=== PATIENT | male | born 1985 | race Caucasian/White ===

== ENCOUNTER 2018-11-18 03:20 | Emergency (ER) | payer BC ==
[2018-11-18] MEDS ORDERED: Ibuprofen 800 MG Tab PO ONE (03:51)
--- NOTE | 2018-11-18 03:57 | EDM.PDOC ---
ED HPI GENERAL MEDICAL PROBLEM - General Chief Complaint: General Stated Complaint: NECK AND THROAT PAIN Time Seen by Provider: 11/18/18 03:36 Source of Information: Reports: Patient History Limitations: Reports: No Limitations - History of Present Illness INITIAL COMMENTS - FREE TEXT/NARRATIVE: 32 y/o M with neck pain, sore throat, nasal congestion, and cough x 3-4 days. No known fever. No difficulty speaking or swallowing. Took APAP about 12 hours ago, no additional medications. He's worried about his neck stiffness. He does not have a headache. He states it doesn't hurt to move his head towards his chest, but when he moves his head side to side he encounters a lot of pain and stiffness. No injury. Pain started a few days ago, initially thought he slept on it wrong. Hasn't improved. No additional complaint. Neck Pain Score (Numeric/FACES): 8 - Related Data Allergies Allergy/AdvReac Type Severity Reaction Status Date / Time No Known Allergies Allergy Verified 11/18/18 03:31 Home Meds: Home Meds Cyclobenzaprine [Flexeril] 10 mg PO BID PRN #10 tab 11/18/18 [Rx] Ibuprofen 800 mg PO TID PRN #30 tablet 11/18/18 [Rx] Past Medical History - Past Health History Medical/Surgical History: Denies Medical/Surgical History Social & Family History - Family History Family Medical History: Noncontributory - Tobacco Use Smoking Status *Q: Current Every Day Smoker Years of Tobacco use: 10 Packs/Tins Daily: 1 - Caffeine Use Caffeine Use: Reports: Coffee - Recreational Drug Use Recreational Drug Use: No ED ROS GENERAL - Review of Systems Review Of Systems: See Below Constitutional: Denies: Fever HEENT: Reports: Rhinitis, Throat Pain Respiratory: Reports: Cough. Denies: Shortness of Breath Cardiovascular: Reports: No Symptoms GI/Abdominal: Reports: No Symptoms Musculoskeletal: Reports: Neck Pain Skin: Reports: No Symptoms Neurological: Reports: No Symptoms ED EXAM, GENERAL - Physical Exam Exam: See Below Exam Limited By: No Limitations General Appearance: Alert, WD/WN, No Apparent Distress Eye Exam: Bilateral Eye: Normal Inspection Ears: Normal External Exam, Normal Canal, Hearing Grossly Normal, Normal TMs Nose: Normal Inspection, Normal Mucosa, No Blood Throat/Mouth: Other (mild posterior pharyngeal erythema, mild tonsillar hypertropy, no tonsillar exudate) Head: Atraumatic, Normocephalic Neck: Normal Inspection, Other (No midline TTP. Can flex without pain, has some pain with extension. Limited ROM in lateral planes bilaterally due to pain but can turn head both directions to about 45 degrees. Moderate TTP of SCM musculature bilaterally, most severe in the superior portions. Few scattered cervical lymph nodes. ) Respiratory/Chest: No Respiratory Distress, Normal Breath Sounds, No Accessory Muscle Use, Chest Non-Tender Cardiovascular: Normal Peripheral Pulses, Regular Rate, Rhythm Extremities: Normal Inspection Neurological: Alert, Oriented, Normal Cognition, No Motor/Sensory Deficits Psychiatric: Normal Affect, Normal Mood Skin Exam: Warm, Dry, Intact, Normal Color Course - Vital Signs Last Recorded V/S: Last Vital Signs Temp 36.9 C 11/18/18 03:29 Pulse 97 11/18/18 03:29 Resp 16 11/18/18 03:29 BP 157/96 H 11/18/18 03:29 Pulse Ox 97 11/18/18 03:29 - Orders/Labs/Meds Orders: Active Orders 24 hr Category Date Time Status Ibuprofen [Motrin] Med 11/18/18 03:51 Once 800 mg PO ONETIME ONE - Re-Assessments/Exams Free Text/Narrative Re-Assessment/Exam: 11/18/18 03:56 Cough/rhinorrhea/mild sore throat consistent with URI. No evidence of deep throat or neck infection. No fever. He has a lot of stiffness of the musculature of the neck, torticollis picture, not necessarily related to his URI symptoms. Discussed symptom control, discussed strict ED return precautions for worsening symptoms. Departure - Departure Time of Disposition: 03:57 Disposition: Home, Self-Care 01 Clinical Impression: Acute muscle stiffness of neck Upper respiratory infection Qualifiers: URI type: unspecified viral URI Qualified Code(s): J06.9 - Acute upper respiratory infection, unspecified - Discharge Information Prescriptions: Cyclobenzaprine [Flexeril] 10 mg PO BID PRN #10 tab PRN Reason: muscle stiffness Ibuprofen 800 mg PO TID PRN #30 tablet PRN Reason: Pain Referrals: PCP,None [Primary Care Provider] - Additional Instructions: 1. Take ibuprofen as prescribed. OK to take acetaminophen (Tylenol) in addition to ibuprofen according to bottle directions. 2. Take cyclobenzaprine (Flexeril) as needed for muscle stiffness 3. Use warm compresses on areas of neck pain. Avoid activities that exacerbate the pain. 4. Follow up with a primary care provider as soon as possible. Call [phone] to schedule here. 5. Return to the ED for worsening pain, new fevers with temp 101 or higher, difficulty swallowing, or other concerning symptoms. - My Orders Last 24 Hours: My Active Orders 11/18/18 03:51 Ibuprofen [Motrin] 800 mg PO ONETIME ONE - Assessment/Plan Last 24 Hours: My Active Orders 11/18/18 03:51 Ibuprofen [Motrin] 800 mg PO ONETIME ONE
== END 2018-11-18 04:08 | disposition home or self-care (01) ==
LOC: JD.ED 03:20
DX: M43.6 Torticollis (principal); J06.9 Acute upper respiratory infection, unspecified; F17.210 Nicotine dependence, cigarettes, uncomplicated
CPT/HCPCS: 99283; A9270

== ENCOUNTER 2019-03-11 23:31 | Emergency (ER) | payer BC ==
[2019-03-12] MEDS ORDERED: predniSONE 20 MG Tab PO ONE (00:28)
--- NOTE | 2019-03-12 00:37 | EDM.PDOC ---
ED HPI GENERAL MEDICAL PROBLEM - General Chief Complaint: Lower Extremity Injury/Pain Stated Complaint: LEFT LEG PAIN Time Seen by Provider: 03/12/19 00:00 Source of Information: Reports: Patient, RN Notes Reviewed - History of Present Illness INITIAL COMMENTS - FREE TEXT/NARRATIVE: 33-year-old male comes in with left-sided low back pain radiation down the left leg clear to the foot. Started with mild low back discomfort about a week ago and then yesterday or the day before started with pain shooting down into the leg. He did go to the walk-in clinic and they did prescribe ibuprofen 800 mg for him. States he has taken "14 of them today" with out any meaningful relief. No abdominal pain nausea vomiting. He is worse with motion. Left Hip Pain Score (Numeric/FACES): 9 - Related Data Allergies Allergy/AdvReac Type Severity Reaction Status Date / Time No Known Allergies Allergy Verified 11/18/18 03:31 Home Meds: Home Meds Cyclobenzaprine [Flexeril] 10 mg PO BID PRN #10 tab 11/18/18 [Rx] Ibuprofen 800 mg PO TID PRN #30 tablet 11/18/18 [Rx] predniSONE [Prednisone] 50 mg PO DAILY #6 tablet 03/12/19 [Rx] Past Medical History - Past Health History Medical/Surgical History: Denies Medical/Surgical History Social & Family History - Family History Family Medical History: Noncontributory - Tobacco Use Smoking Status *Q: Current Every Day Smoker Years of Tobacco use: 10 Packs/Tins Daily: 0.5 - Caffeine Use Caffeine Use: Reports: Coffee - Recreational Drug Use Recreational Drug Use: No Review of Systems - Review of Systems Review Of Systems: See Below Constitutional: Denies: Chills, Fever Mouth/Throat: Reports: No Symptoms Respiratory: Denies: Shortness of Breath Cardiovascular: Denies: Chest Pain GI/Abdominal: Denies: Abdominal Pain, Nausea, Vomiting Musculoskeletal: Reports: Back Pain, Leg Pain Skin: Reports: No Symptoms Neurological: Denies: Numbness, Tingling, Weakness ED EXAM, GENERAL - Physical Exam Exam: See Below General Appearance: Alert, Mild Distress Head: Atraumatic Neck: Supple Respiratory/Chest: No Respiratory Distress Back Exam: No: Paraspinal Tenderness, Vertebral Tenderness Extremities: Normal Inspection. No: Leg Pain, Increased Warmth, Redness Neurological: Alert, Oriented, No Motor/Sensory Deficits, Other (He does have pain with straight leg raising on the left) Skin Exam: Warm, Dry, Normal Color Course - Vital Signs Last Recorded V/S: Last Vital Signs Temp 97.5 F 03/11/19 23:37 Pulse 84 03/11/19 23:37 Resp 17 03/11/19 23:37 BP 178/124 H 03/11/19 23:37 Pulse Ox 99 03/11/19 23:37 - Orders/Labs/Meds Orders: Active Orders 24 hr Category Date Time Status predniSONE Med 03/12/19 00:28 Once 40 mg PO ONETIME ONE Medication Orders Prednisone (Prednisone) 40 mg PO ONETIME ONE Stop: 03/12/19 00:29 Meds: Medications Generic Name Dose Route Start Last Admin Trade Name Brice PRN Reason Stop Dose Admin Prednisone 40 mg 03/12/19 00:28 Prednisone PO 03/12/19 00:29 ONETIME ONE Departure - Departure Time of Disposition: 00:29 Disposition: Home, Self-Care 01 Condition: Fair Clinical Impression: Sciatica of left side - Discharge Information Prescriptions: predniSONE [Prednisone] 50 mg PO DAILY #6 tablet Referrals: PCP,None [Primary Care Provider] - Additional Instructions: Ibuprofen as previously prescribed 4 times daily with food. You've been given prednisone 40 mg orally while here in the ED as a steroid will help reduce the swelling and inflammation more quickly. Continue prednisone 50 mg every morning for the next 6 days. Hydrocodone 1-2 tabs every 4-6 hours as needed for severe pain. When the pain is less severe you can then stop the hydrocodone and take Tylenol 3-4 times daily in addition to the ibuprofen. Do not drive or work when taking hydrocodone. Follow-up clinic if not much better within 4-5 days as expected. Sepsis Event Note - Evaluation Sepsis Screening Result: No Definite Risk - Focused Exam Vital Signs: Vital Signs Temp Pulse Resp BP Pulse Ox 03/11/19 23:37 97.5 F 84 17 178/124 H 99 Date Exam was Performed: 03/12/19 Time Exam was Performed: 00:29 - My Orders Last 24 Hours: My Active Orders 03/12/19 00:28 predniSONE 40 mg PO ONETIME ONE - Assessment/Plan Last 24 Hours: My Active Orders 03/12/19 00:28 predniSONE 40 mg PO ONETIME ONE
== END 2019-03-12 00:42 | disposition home or self-care (01) ==
LOC: JD.ED 23:31
DX: M54.42 Lumbago with sciatica, left side (principal); F17.210 Nicotine dependence, cigarettes, uncomplicated
CPT/HCPCS: 99283; A9270

== ENCOUNTER 2020-04-06 21:19 | Emergency (ER) | payer BC ==
--- NOTE | 2020-04-06 21:53 | EDM.PDOC ---
ED HPI GENERAL MEDICAL PROBLEM - General Chief Complaint: Abdominal Pain Stated Complaint: STOMACH PAIN Time Seen by Provider: 04/06/20 21:24 Source of Information: Reports: Patient History Limitations: Reports: No Limitations - History of Present Illness INITIAL COMMENTS - FREE TEXT/NARRATIVE: The patient presents with some abdominal discomfort and a lump in his naval area. He said he noticed this today. He does lots of heavy lifting at his work and at the gym. He had some discomfort today moving around and then felt a lump in his umbilical area. He has no nausea or vomiting. He has never had trouble with this before. Onset: Gradual Duration: Hour(s): Location: Reports: Abdomen Quality: Reports: Ache Severity: Mild Improves with: Reports: None Worsens with: Reports: None Associated Symptoms: Reports: No Other Symptoms - Related Data Allergies Allergy/AdvReac Type Severity Reaction Status Date / Time No Known Allergies Allergy Verified 11/18/18 03:31 Home Meds: Home Meds . [No Known Home Meds] 04/06/20 [History] Past Medical History - Past Health History Medical/Surgical History: Denies Medical/Surgical History - Infectious Disease History Infectious Disease History: Reports: Chicken Pox Social & Family History - Family History Family Medical History: No Pertinent Family History - Tobacco Use Tobacco Use Status *Q: Current Every Day Tobacco User Years of Tobacco use: 15 Packs/Tins Daily: 1 - Caffeine Use Caffeine Use: Reports: Coffee, Soda, Tea - Recreational Drug Use Recreational Drug Use: No ED ROS GENERAL - Review of Systems Review Of Systems: See Below Constitutional: Reports: No Symptoms HEENT: Reports: No Symptoms Respiratory: Reports: No Symptoms Cardiovascular: Reports: No Symptoms Endocrine: Reports: No Symptoms GI/Abdominal: Reports: Abdominal Pain. Denies: Diarrhea, Nausea, Vomiting : Reports: No Symptoms Musculoskeletal: Reports: No Symptoms ED EXAM, GI/ABD - Physical Exam Exam: See Below Exam Limited By: No Limitations General Appearance: Alert, No Apparent Distress Ears: Normal External Exam Nose: Normal Inspection Head: Atraumatic, Normocephalic Neck: Normal Inspection Respiratory/Chest: No Respiratory Distress, Lungs Clear, Normal Breath Sounds Cardiovascular: Regular Rate, Rhythm, No Edema, No Murmur GI/Abdominal Exam: Soft, No Organomegaly, No Mass, Tender (Mild tenderness to the umbilicus with a lump inside the umbilicus on the right side. It appears to be reducible and only mildly tender.) Course - Vital Signs Last Recorded V/S: Last Vital Signs Temp 97.7 F 04/06/20 21:33 Pulse 79 04/06/20 21:33 Resp 20 04/06/20 21:33 BP 134/74 04/06/20 21:33 Pulse Ox 96 04/06/20 21:33 - Re-Assessments/Exams Free Text/Narrative Re-Assessment/Exam: 04/06/20 21:51 It appears he has a hernia. I will have him not lift heavy and follow up with Dr Samayoa. Departure - Departure Time of Disposition: 22:00 Disposition: Home, Self-Care 01 Condition: Good Clinical Impression: Umbilical hernia Qualifiers: Obstruction and gangrene presence: without obstruction or gangrene Qualified Code(s): K42.9 - Umbilical hernia without obstruction or gangrene - Discharge Information *PRESCRIPTION DRUG MONITORING PROGRAM REVIEWED*: Not Applicable *COPY OF PRESCRIPTION DRUG MONITORING REPORT IN PATIENT LISET: Not Applicable Referrals: Phoebe Cutler NP [Primary Care Provider] - Colby Samayoa MD [Physician] - 1 Week Additional Instructions: Do not lift anything heavier then 20 pounds. Follow up with Dr Samayoa. Please return if you are worse. Sepsis Event Note (ED) - Evaluation Sepsis Screening Result: No Definite Risk - Focused Exam Vital Signs: Vital Signs Temp Pulse Resp BP Pulse Ox 04/06/20 21:33 97.7 F 79 20 134/74 96
== END 2020-04-06 22:00 | disposition home or self-care (01) ==
LOC: JD.ED 21:19
DX: K42.9 Umbilical hernia without obstruction or gangrene (principal); Z72.0 Tobacco use
CPT/HCPCS: 99283

== ENCOUNTER 2024-09-18 19:16 | Emergency (ER) | payer BC ==
[2024-09-18] MEDS ORDERED: Sodium Chloride 0.9% 10 ML Syringe FLUSH PRN (20:33)
[2024-09-18 20:49] LABS: BASOPHILS ABSOLUTE AUTO 0.1 K/mm3 (0.0-0.2); BASOPHILS PERCENT AUTO 0.9 % (0.0-1.0); EOSINOPHILS ABSOLUTE AUTO 0.2 K/mm3 (0.0-0.4); EOSINOPHILS PERCENT AUTO 1.2 % (0.0-6.0); IMMATURE GRAN ABSOLUTE AUTO 0.04 K/mm3 (0.00-0.05); IMMATURE GRAN PERCENT AUTO 0.3 % (0.0-0.4); LYMPHOCYTES ABSOLUTE AUTO 2.1 K/mm3 (1.0-4.8); LYMPHOCYTES PERCENT AUTO 16.3 % (24.0-44.0); MEAN PLATELET VOLUME 9.7 fl (9.4-12.4); MONOCYTES ABSOLUTE AUTO 0.7 K/mm3 (0.0-0.8); MONOCYTES PERCENT AUTO 5.1 % (0.0-8.0); NEUTROPHILS ABSOLUTE AUTO 9.7 K/mm3 (1.8-7.7); NEUTROPHILS PERCENT AUTO 76.2 % (41.0-71.0); NRBC ABSOLUTE 0.00 (0.00-0.02); NRBC PERCENT 0.0 % (0.0-0.2); PLATELET COUNT,PLT 368 K/mm3 (150-400); WHITE BLOOD CELL COUNT,WBC 12.75 K/mm3 (3.9-11.3)
[2024-09-18] MEDS: Sodium Chloride 0.9% 10 ML Syringe FLUSH ONE (20:49)
[2024-09-18] MEDS: Iopamidol 612 MG/ML 100 ML Bottle IVPUSH ONE (20:49)
[2024-09-18 21:02] LABS: CHLORIDE,CL 93 mEq/L (98-107); SODIUM,NA 129 mEq/L (136-145)
[2024-09-18 21:16] LABS: RED BLOOD CELL COUNT 5.28 M/mm3 (4.52-5.90)
[2024-09-18 21:33] LABS: POTASSIUM,K 4.8 mEq/L (3.5-5.1)
[2024-09-18 21:34] LABS: CARBON DIOXIDE,CO2 26 mEq/L (21-32)
[2024-09-18 21:40] LABS: GLUCOSE RANDOM 415 mg/dL (70-99)
[2024-09-18] MEDS: Ketorolac 30 MG/ML SDV IVPUSH ONE (22:22)
== END 2024-09-18 22:42 | disposition home or self-care (01) ==
LOC: JD.ED 19:16
DX: K85.90 Acute pancreatitis without necrosis or infection, unspecified (principal); E78.9 Disorder of lipoprotein metabolism, unspecified; F17.200 Nicotine dependence, unspecified, uncomplicated; Z79.899 Other long term (current) drug therapy
CPT/HCPCS: 36415; 74177; 80053; 83690; 83735; 85025; 86140; 96374; 99284; J1885; Q9967

== ENCOUNTER 2024-09-20 19:09 | Inpatient (IN) | payer BC ==
[2024-09-20] MEDS ORDERED: Sodium Chloride 0.9% 10 ML Syringe FLUSH PRN (19:36)
[2024-09-20 20:09] LABS: BASOPHILS ABSOLUTE AUTO 0.1 K/mm3 (0.0-0.2); BASOPHILS PERCENT AUTO 0.3 % (0.0-1.0); EOSINOPHILS ABSOLUTE AUTO 0.1 K/mm3 (0.0-0.4); EOSINOPHILS PERCENT AUTO 0.5 % (0.0-6.0); IMMATURE GRAN ABSOLUTE AUTO 0.07 K/mm3 (0.00-0.05); IMMATURE GRAN PERCENT AUTO 0.5 % (0.0-0.4); LYMPHOCYTES ABSOLUTE AUTO 1.6 K/mm3 (1.0-4.8); LYMPHOCYTES PERCENT AUTO 10.8 % (24.0-44.0); MEAN PLATELET VOLUME 9.5 fl (9.4-12.4); MONOCYTES ABSOLUTE AUTO 1.3 K/mm3 (0.0-0.8); MONOCYTES PERCENT AUTO 8.9 % (0.0-8.0); NEUTROPHILS ABSOLUTE AUTO 11.9 K/mm3 (1.8-7.7); NEUTROPHILS PERCENT AUTO 79.0 % (41.0-71.0); NRBC ABSOLUTE 0.00 (0.00-0.02); NRBC PERCENT 0.0 % (0.0-0.2); PLATELET COUNT,PLT 249 K/mm3 (150-400); RED BLOOD CELL COUNT 5.12 M/mm3 (4.52-5.90); WHITE BLOOD CELL COUNT,WBC 15.06 K/mm3 (3.9-11.3)
[2024-09-20 20:40] LABS: A/G RATIO 0.8 (1-2); ALANINE AMINOTRANSFERASE,ALT 36.0 U/L (16-63); ASPARTATE AMNIOTRANSFERASE,AST 15.0 U/L (15-37); BILIRUBIN TOTAL 1.1 mg/dL (0.2-1.0); BLOOD UREA NITROGEN,BUN 12.0 mg/dL (7-18); CARBON DIOXIDE,CO2 26.0 mEq/L (21-32); CHLORIDE,CL 95.0 mEq/L (98-107); CREATININE 0.9 mg/dL (0.7-1.3); EST CRCL DRUG DOSING (CG) 123.35 mL/min; ESTIMATED GFR 113.0 mL/min (>60); GLUCOSE RANDOM 297.0 mg/dL (70-99); POTASSIUM,K 3.9 mEq/L (3.5-5.1); PROTEIN TOTAL,TP 7.9 g/dl (6.4-8.2); SODIUM,NA 132.0 mEq/L (136-145)
[2024-09-20 22:04] LABS: LACTIC ACID < 0.3 mmol/L (0.4-2.0)
[2024-09-20] MEDS ORDERED: 50% Dextrose in Water 50 ML Syringe IVPUSH PRN (23:02)
[2024-09-20] MEDS: Insulin Regular, Human 100 Units/ML 3 ML Vial SUBCUT ONE ×2 (23:08→23:25)
[2024-09-20] MEDS: Insulin Regular, Human 100 Units/ML 10 ML Vial SUBCUT ONE (23:25)
[2024-09-21] MEDS: Iopamidol 612 MG/ML 100 ML Bottle IVPUSH ONE (03:31)
[2024-09-21 05:51] LABS: BASOPHILS ABSOLUTE AUTO 0.0 K/mm3 (0.0-0.2); BASOPHILS PERCENT AUTO 0.3 % (0.0-1.0); EOSINOPHILS ABSOLUTE AUTO 0.1 K/mm3 (0.0-0.4); EOSINOPHILS PERCENT AUTO 0.9 % (0.0-6.0); IMMATURE GRAN ABSOLUTE AUTO 0.06 K/mm3 (0.00-0.05); IMMATURE GRAN PERCENT AUTO 0.5 % (0.0-0.4); LYMPHOCYTES ABSOLUTE AUTO 1.3 K/mm3 (1.0-4.8); LYMPHOCYTES PERCENT AUTO 9.9 % (24.0-44.0); MEAN PLATELET VOLUME 9.6 fl (9.4-12.4); MONOCYTES ABSOLUTE AUTO 1.1 K/mm3 (0.0-0.8); MONOCYTES PERCENT AUTO 9.0 % (0.0-8.0); NEUTROPHILS ABSOLUTE AUTO 10.1 K/mm3 (1.8-7.7); NEUTROPHILS PERCENT AUTO 79.4 % (41.0-71.0); NRBC ABSOLUTE 0.00 (0.00-0.02); NRBC PERCENT 0.0 % (0.0-0.2); PLATELET COUNT,PLT 215 K/mm3 (150-400); RED BLOOD CELL COUNT 4.95 M/mm3 (4.52-5.90); WHITE BLOOD CELL COUNT,WBC 12.66 K/mm3 (3.9-11.3)
[2024-09-21] MEDS ORDERED: Naloxone 0.4 MG/ML SDV IVPUSH PRN (06:02)
[2024-09-21] MEDS ORDERED: 50% Dextrose in Water 50 ML Syringe IVPUSH PRN (06:09)
[2024-09-21 06:12] LABS: A/G RATIO 0.7 (1-2); BILIRUBIN TOTAL 1.2 mg/dL (0.2-1.0); BLOOD UREA NITROGEN,BUN 7.0 mg/dL (7-18); CHLORIDE,CL 97.0 mEq/L (98-107); ESTIMATED GFR 117.0 mL/min (>60); POTASSIUM,K 3.7 mEq/L (3.5-5.1); PROTEIN TOTAL,TP 7.3 g/dl (6.4-8.2); SODIUM,NA 132.0 mEq/L (136-145)
[2024-09-21 06:27] LABS: ALANINE AMINOTRANSFERASE,ALT 30.0 U/L (16-63); ASPARTATE AMNIOTRANSFERASE,AST 15.0 U/L (15-37); CARBON DIOXIDE,CO2 23.0 mEq/L (21-32); CREATININE 0.8 mg/dL (0.7-1.3); EST CRCL DRUG DOSING (CG) 138.76 mL/min; GLUCOSE RANDOM 253.0 mg/dL (70-99)
[2024-09-21 06:55] LABS: CHOLESTEROL HDL 13 mg/dL (40-59); CHOLESTEROL LDL DIRECT 56 mg/dL (<100); CHOLESTEROL TOTAL 234 mg/dL (<200)
[2024-09-21] MEDS: Ondansetron 4 MG/2 ML SDV IVPUSH PRN (06:58)
[2024-09-21] MEDS ORDERED: Ketorolac 30 MG/ML SDV IV PRN (08:03)
[2024-09-21] MEDS ORDERED: Ondansetron 4 MG/2 ML SDV IV PRN (08:03)
[2024-09-21] MEDS ORDERED: Insulin Regular, Human 100 Units/ML 3 ML Vial SUBCUT SCH (09:00)
[2024-09-21] MEDS ORDERED: Insulin Regular, Human 100 Units/ML 10 ML Vial SUBCUT SCH (09:00)
[2024-09-21] MEDS: Diatrizoate Meglumine/Diatrizoate Sodium 37% 120 ML Bottle PO ONE (09:19)
[2024-09-21] MEDS: Lactated Ringers 1,000 ML IV SCH (09:27)
[2024-09-21] MEDS: Insulin Lispro 100 Unit/ML 3 ML KwikPen SUBCUT SCH (11:46)
[2024-09-22 05:36] LABS: BASOPHILS ABSOLUTE AUTO 0.0 K/mm3 (0.0-0.2); BASOPHILS PERCENT AUTO 0.3 % (0.0-1.0); EOSINOPHILS ABSOLUTE AUTO 0.2 K/mm3 (0.0-0.4); EOSINOPHILS PERCENT AUTO 2.5 % (0.0-6.0); IMMATURE GRAN ABSOLUTE AUTO 0.05 K/mm3 (0.00-0.05); IMMATURE GRAN PERCENT AUTO 0.5 % (0.0-0.4); LYMPHOCYTES ABSOLUTE AUTO 1.3 K/mm3 (1.0-4.8); LYMPHOCYTES PERCENT AUTO 13.2 % (24.0-44.0); MEAN PLATELET VOLUME 9.8 fl (9.4-12.4); MONOCYTES ABSOLUTE AUTO 1.0 K/mm3 (0.0-0.8); MONOCYTES PERCENT AUTO 10.1 % (0.0-8.0); NEUTROPHILS ABSOLUTE AUTO 7.0 K/mm3 (1.8-7.7); NEUTROPHILS PERCENT AUTO 73.4 % (41.0-71.0); NRBC ABSOLUTE 0.00 (0.00-0.02); NRBC PERCENT 0.0 % (0.0-0.2); PLATELET COUNT,PLT 213 K/mm3 (150-400); RED BLOOD CELL COUNT 4.51 M/mm3 (4.52-5.90); WHITE BLOOD CELL COUNT,WBC 9.48 K/mm3 (3.9-11.3)
[2024-09-22 06:25] LABS: A/G RATIO 0.6 (1-2); ALANINE AMINOTRANSFERASE,ALT 30.0 U/L (16-63); ASPARTATE AMNIOTRANSFERASE,AST 18.0 U/L (15-37); BILIRUBIN TOTAL 0.7 mg/dL (0.2-1.0); BLOOD UREA NITROGEN,BUN 7.0 mg/dL (7-18); CARBON DIOXIDE,CO2 25.0 mEq/L (21-32); CHLORIDE,CL 101.0 mEq/L (98-107); CREATININE 0.7 mg/dL (0.7-1.3); EST CRCL DRUG DOSING (CG) 158.59 mL/min; ESTIMATED GFR 122.0 mL/min (>60); GLUCOSE RANDOM 226.0 mg/dL (70-99); POTASSIUM,K 3.6 mEq/L (3.5-5.1); PROTEIN TOTAL,TP 6.7 g/dl (6.4-8.2); SODIUM,NA 134.0 mEq/L (136-145)
[2024-09-22] MEDS: Insulin Glargine,Human Rec. Analog 100 Units/ML 3 ML Pen SUBCUT SCH (08:43)
== END 2024-09-22 11:50 | disposition home or self-care (01) | DRG 282 ==
LOC: JD.ED 19:09 → JD.MS 09-21 08:03
PROVIDERS: ADMIT Family Medicine; ATTEND Family Medicine
DX: K85.90 Acute pancreatitis without necrosis or infection, unspecified (principal); G47.33 Obstructive sleep apnea (adult) (pediatric); F41.9 Anxiety disorder, unspecified; E11.65 Type 2 diabetes mellitus with hyperglycemia; E78.2 Mixed hyperlipidemia; I10 Essential (primary) hypertension; N20.0 Calculus of kidney; E78.1 Pure hyperglyceridemia; F17.290 Nicotine dependence, other tobacco product, uncomplicated; R16.1 Splenomegaly, not elsewhere classified; K76.0 Fatty (change of) liver, not elsewhere classified; Z79.899 Other long term (current) drug therapy
CPT/HCPCS: 36415; 74177; 74177-26; 76705; 76705-26; 80053; 80061; 82947; 83036; 83605; 83690; 83735; 85025; 96361; 96374; 96375; 99285-25; A9270-GY; J1171; J1815-GY; J2405; J7030; J7120; Q9963; Q9967